=== PATIENT | male | born 1970 | race Caucasian/White ===

== ENCOUNTER 2016-06-26 11:18 | Day surgery (SDC) | payer BC ==
[2016-06-22 16:20] VITALS: BMI 28.5
[~2016-06-26 11:18] MED LIST: ALPRAZolam 0.25 MG TAB PO PRN; ASPIRIN 325 MG TAB PO ONE; SODIUM CHLORIDE 0.9% 1,000 ML in EMPTY BAG 1 BAG IV ONE
[2016-06-26 12:10] VITALS: RESP 18
[2016-06-26 12:11] LABS: Basophils % (A) 1 %; CH 31.7; CHCM 35.4; Eosinophils # (A) 0.3 k/uL (0-0.7); Eosinophils % (A) 4 %; HCT 51.2 % (39.0-53.0); HDW 2.88; HGB 17.7 gm/dL (13.0-17.5); Luc # (Auto) 0.18; Luc % (Auto) 2; Lymphocytes # (A) 2.3 k/uL (1.0-4.8); Lymphocytes % (A) 29 %; MCHC 34.5 g/dL (31.0-37.0); Mean Platelet Volume 7.3; Monocytes # (A) 0.4 k/uL (0-1.0); Monocytes % (A) 5 %; Neutrophils # (A) 4.7 k/uL (1.3-7.7); Neutrophils % (A) 60 %; RBC 5.69 m/uL (4.30-5.90); RDW 12.9 % (11.5-15.5); WBC 7.9 k/uL (3.8-10.6); WBC (Perox) 8.65
[2016-06-26] MEDS: fentaNYL (PF) 50 MCG/ML 2 ML AMP IV ONE ×2 (13:03→13:36)
[2016-06-26] MEDS ORDERED: LIDOCAINE 2% INJ 20 MG/ML SQ ONE (13:03)
[2016-06-26] MEDS ORDERED: MIDAZOLAM 2 MG/2 ML VIAL IV ONE (13:06)
[2016-06-26] MEDS ORDERED: NITROGLYCERIN 1000MCG/10ML SYRINGE INTRACORON ONE (13:18)
[2016-06-26] MEDS ORDERED: IOHEXOL 350 MG/ML 100 ML BOTTLE INJ ONE (13:24)
[2016-06-26] MEDS ORDERED: RX INFO: IV CONTRAST WAS GIVEN 1 EACH MISC MISCELLANE PRN (13:39)
[2016-06-26] MEDS ORDERED: oxyCODONE-APAP 7.5-325MG 1 EACH TAB PO PRN (13:40)
[2016-06-26] MEDS ORDERED: NITROGLYCERIN SL TABS 0.4 MG TAB SUBLINGUAL PRN (13:40)
[2016-06-26] MEDS ORDERED: IBUPROFEN 800 MG TAB PO PRN (13:40)
[2016-06-26] MEDS ORDERED: SODIUM CHLORIDE 0.9% 1,000 ML IV SCH (13:45)
[2016-06-26 16:52] VITALS: TEMP 98.4
[2016-06-26 16:53] VITALS: BP 120/66; PULSE 72
--- NOTE | 2016-06-26 22:40 | CC ---
DATE OF SERVICE: ALLERGIES: MORPHINE. Catheterization number [id number]. CLINICAL INFORMATION: Lisette Rdz is seen in the office with classical new onset of anginal symptoms. Patient is a heavy smoker, smoking 1 pack of cigarettes a day all his life. Patient advised complete cessation of smoking. Because of the classical anginal symptoms relieved by nitroglycerin, advised cardiac catheterization. Patient is already on atenolol 50 mg p.o. daily, isosorbide mononitrate 30 mg p.o. daily, aspirin. Patient had a lipid panel drawn, but we do not have the results yet. We will start him on lipid-lowering agents once the lipid panel is available to me. Patient underwent cardiac catheterization today. PROCEDURE: Under local anesthesia with sterile precautions, right femoral artery was cannulated using a Seldinger technique; placed a 6 Azeri sheath and proceeded with right and left selective coronary arteriography followed by left ventriculography and common femoral angiogram and Angio-Seal. Patient was sedated. Patient was under sedation about 35 to 40 minutes. Patient tolerated the procedure very well. There were no complications during or after completion of the procedure. HEMODYNAMIC DATA: Aortic pressure noted to be 98/56 with a mean pressure of 73. Left ventricular end-diastolic pressure prior to angiography was 12; post angiography increased to 14 mmHg. There was no gradient across the aortic valve. LEFT VENTRICULOGRAPHY: Left ventriculography done in 30-degree PAVON projection revealed normal cardiac silhouette with well-preserved left ventricular systolic function with an estimated ejection fraction of 65% to 70% without any mitral regurgitation. Ascending and descending aorta appeared normal. SELECTIVE CORONARY ARTERIOGRAPHY: Left main coronary artery is of normal caliber, free of any atherosclerotic occlusive disease. Left anterior descending is a good-caliber blood vessel, wraps around the apex, free of any atherosclerotic occlusive disease. Left circumflex is a moderate-caliber non-dominant blood vessel, free of any atherosclerotic occlusive disease. Right coronary is a dominant, very tortuous, noted to have 20% to 30% ostial narrowing with spasm on it, relieved by nitroglycerin, without any distal ( ) course of the vessel is free of any atherosclerotic occlusive disease. Continued medical therapy is recommended. At this point ostial stenting is not needed because of the non-critical stenosis. ASSESSMENT: Single-vessel disease involving the ostium of the right coronary with 20% to 30% irregularities which is not a critical disease, with normal left system, normal left ventricular function. RECOMMENDATIONS: Continue medical therapy and risk factor modifications, including the nitroglycerin, nicotine patch. Patient is already on a patch at home. Will add the statins once the results of the lipid panel are known.
[2016-06-27] MEDS ORDERED: PANTOPRAZOLE 40 MG TABLET PO SCH (07:30)
[2016-06-27] MEDS ORDERED: ATENOLOL 50 MG TAB PO SCH (09:00)
[2016-06-27] MEDS ORDERED: ISOSORBIDE MONONITRATE ER 30 MG TAB.ER.24H PO SCH (09:00)
== END 2016-06-26 16:55 | disposition home or self-care (01) ==
LOC: CATHCVL 11:18 → EDSEX 12:05 → CATHCVL 16:55
PROVIDERS: ATTEND Internal Medicine Interventional Cardiology
DX: I25.110 Atherosclerotic heart disease of native coronary artery with unstable angina pectoris (principal); E78.5 Hyperlipidemia, unspecified; I10 Essential (primary) hypertension; Z82.49 Family history of ischemic heart disease and other diseases of the circulatory system; F17.210 Nicotine dependence, cigarettes, uncomplicated; Z79.82 Long term (current) use of aspirin; Z79.899 Other long term (current) drug therapy; Z88.5 Allergy status to narcotic agent
CPT/HCPCS: 99152; 93458; 85025; 99153; C1760; C1894; C1769; J2001; J2250; Q9967; J3010

== ENCOUNTER → 2017-04-09 | Outpatient (CLI) | payer OTHER ==
--- NOTE | 2017-04-09 23:19 | MR ---
EXAMINATION TYPE: MR lumbar spine wo con DATE OF EXAM: 04/09/2017 COMPARISON: NONE HISTORY: Low back pain for 2-3 months, pain mostly Right side TECHNIQUE: Multiplanar, multisequence images of the lumbar spine were acquired. Lumbar vertebra have normal alignment. There is no compression fracture. There is slight decreased si gnal in the disks at L3-4 and L5-S1. There is no significant loss of height. The sacroiliac joints ap pear normal. There is no lumbar paraspinal mass. I see no bony destructive process. There is no spina l stenosis. The neural foramina are fairly well-maintained. There are mild anterior disc bulges at L1 -L2 3 IMPRESSION: Minimal spondylotic changes. No evidence of lumbar disc herniation or spinal stenosis. No fracture.
== END | disposition home or self-care (01) ==
LOC: RADMRIMAIN 20:53
PROVIDERS: ATTEND Family Medicine
DX: M47.16 Other spondylosis with myelopathy, lumbar region (principal)
CPT/HCPCS: 72148

== ENCOUNTER → 2017-10-25 | Outpatient (CLI) | payer BC, OTHER ==
--- NOTE | 2017-10-25 08:12 | US ---
EXAMINATION TYPE: US abdomen complete DATE OF EXAM: 10/25/2017 COMPARISON: NONE CLINICAL HISTORY: R10.9 Abdominal Pain. RUQ pain EXAM MEASUREMENTS: Liver Length: 13.0 cm Gallbladder Wall: 0.2 cm CBD: 0.2 cm Spleen: 10.4 cm Right Kidney: 11.7 x 4.5 x 5.9 cm Left Kidney: 13.4 x 6.1 x 7.2 cm Pancreas: limited vis due to midline bowel gas Liver: Very mildly coarse echotexture with diminished visualization of some of the portal triads. Th is could relate to mild hepatic steatosis or technique. Gallbladder: No stones seen Evidence for sonographic Myers's sign: Yes CBD: wnl Spleen: wnl Right Kidney: No hydronephrosis or masses seen Left Kidney: No hydronephrosis or masses seen Upper IVC: wnl Abd Aorta: wnl The intrahepatic portion of the IVC and proximal abdominal aorta are within normal limits. There is no evidence of cholelithiasis. Common bile duct is unremarkable. The visualized portions of the monson creas are homogenous. The spleen is unremarkable. Kidneys are symmetric and free of hydronephrosis. No renal lesions are seen. IMPRESSION: No sonographic evidence of cholelithiasis or acute cholecystitis. Liver is very mildly he terogenous and could relate to minimal hepatic steatosis. Correlate with liver function tests.
== END | disposition home or self-care (01) ==
LOC: RADUSWWP 07:34
PROVIDERS: ATTEND Family Medicine
DX: R93.2 Abnormal findings on diagnostic imaging of liver and biliary tract (principal); R10.9 Unspecified abdominal pain
CPT/HCPCS: 76700

== ENCOUNTER 2018-11-06 11:03 | Day surgery (SDC) | payer OTHER ==
[2018-11-04 14:42] VITALS: BMI 28.8
[~2018-11-06 11:03] MED LIST changes: -ALPRAZolam 0.25 MG TAB PO PRN; -ASPIRIN 325 MG TAB PO ONE; +LACTATED RINGERS 1,000 ML IV SCH; +LIDOCAINE 1% 20 ML VIAL (10MG/ML) FOR IV START INTRADERMA PRN; -SODIUM CHLORIDE 0.9% 1,000 ML in EMPTY BAG 1 BAG IV ONE
[2018-11-06 12:07] VITALS: TEMP 98.1
[2018-11-06 12:14] LABS: Glucose,Whole Blood 84 mg/dL (75-99)
[2018-11-06] MEDS ORDERED: PROPOFOL 10 MG/ML 20 ML VIAL IV ONE (13:27)
--- NOTE | 2018-11-06 13:55 | P.PCN ---
Date of Procedure: 11/06/18 Procedure(s) Performed: Procedure: Total colonoscopy. Preoperative diagnosis: Screening for neoplasia. Postoperative diagnosis: Less than ideal preparation, otherwise, exam within normal limits. Preparation: HalfLytely prep. Sedation: Was provided by anesthesia. Brief clinical history: The patient is a 48-year-old male who is scheduled for this evaluation for screening for neoplasia age being his risk factor. There is no family history of colon cancer and this would be the patient's first colonosc opy. The patient indicated that he has been having issues with constipation and urine flow that he is a dressing with PCP. Procedure: With the patient on his left lateral decubitus position and after informed consent and adequate sedation, the perianal area was inspected and it did not show any fissures or fistulas. There were no masses felt on digital rectal examination. The Olympus CFH 190 L video colonoscope was then inserted in the rectum in the usual fashion and advanced to the cecum. Unfortunately, the preparation was less than ideal, especially on the right side, but there were no large polyps or obvious tumors or obstruction. I retroflexed the endoscope in the rectum before the endoscope was withdrawn. The patient tolerated the procedure well. Plan: The patient was reassured. He will follow up with you as planned and I recommended that he has a repeat colonoscopy in 3-5 years before going with the 10-year schedule.
[2018-11-06 14:03] VITALS: RESP 16
[2018-11-06 14:24] VITALS: BP 136/83; PULSE 93
== END 2018-11-06 14:56 | disposition home or self-care (01) ==
LOC: ORWHC2ENDO 11:03
DX: K59.00 Constipation, unspecified (principal); K21.9 Gastro-esophageal reflux disease without esophagitis; G47.33 Obstructive sleep apnea (adult) (pediatric); Z99.89 Dependence on other enabling machines and devices; F17.200 Nicotine dependence, unspecified, uncomplicated; Z79.1 Long term (current) use of non-steroidal anti-inflammatories (NSAID); Z79.891 Long term (current) use of opiate analgesic; Z79.899 Other long term (current) drug therapy; Z88.5 Allergy status to narcotic agent
CPT/HCPCS: 45378; J2704